=== PATIENT | female | born 1955 | race Caucasian/White ===

== ENCOUNTER → 2025-01-16 | Outpatient (CLI) | payer OTHER ==
[2025-01-16 20:01] LABS: Bacterial Vaginosis PCR Negative (NEGATIVE); Candida Group, PCR NOT DETECTED (NOT DETECT); Candida glabrata-krusei, PCR NOT DETECTED (NOT DETECT)
== END ==
LOC: LAB SHORT 12:34 → LAB 12:34
PROVIDERS: Chiropractor
DX: N39.0 Urinary tract infection, site not specified (principal); N76.0 Acute vaginitis
CPT/HCPCS: 81515; 87077; 87086; 87186

== ENCOUNTER 2025-02-12 17:27 | Emergency (ER) | payer OTHER ==
[~2025-02-12] VITALS: Ht 162.6 cm; Wt 64.9 kg
[2025-02-12] MEDS ORDERED: Diphth,Pertuss(Acell),Tet Vac 0.5 ML VIAL IM ONE ×2 (17:40→19:10)
[2025-02-12] MEDS ORDERED: CEPH500 PO (19:08)
== END 2025-02-12 19:26 | disposition home or self-care (01) ==
LOC: ER 17:27
DX: S41.011A Laceration without foreign body of right shoulder, initial encounter (principal); I10 Essential (primary) hypertension; W26.8XXA Contact with other sharp object(s), not elsewhere classified, initial encounter; Z88.0 Allergy status to penicillin; Z88.2 Allergy status to sulfonamides
CPT/HCPCS: 12004; 90471; 90715; 99282-25